=== PATIENT | female | born 1970 | race African-American/Black ===

== ENCOUNTER 2022-11-07 12:55 | Emergency (ER) | payer OTHER ==
[~2022-11-07] VITALS: Ht 167.6 cm; Wt 127.0 kg
[2022-11-07 14:39] LABS: BASOPHILS % 0.7 % (0.0-2.0); EOSINOPHILS % 1.4 % (0.0-5.0); HEMATOCRIT. 33.8 % (36.0-48.0); HEMOGLOBIN. 10.9 g/dL (12.0-16.0); MEAN CORPUSCULAR HEMOGLOBIN 28.5 pg (28.0-32.0); MEAN CORPUSCULAR VOLUME 88.9 fL (81.0-99.0); MEAN PLATELET VOLUME 7.6 fl (7.4-10.4); MONOCYTES % 7.2 % (2.0-8.0); NEUTROPHILS % 68.7 % (40.0-76.0); PLATELET 298 x1000/uL (130-400)
[2022-11-07] MEDS ORDERED: SODIUM CHLORIDE 0.9% 1,000 ML IV ONE (14:45)
[2022-11-07] MEDS ORDERED: KETOROLAC 15MG/ML VIAL IV ONE (14:45)
[2022-11-07 14:50] LABS: PROTHROMBIN TIME 10.5 sec (9.6-11.0)
[2022-11-07 16:04] LABS: CHLORIDE 109 mEq/L (98-107)
[2022-11-07 16:41] VITALS: BP 142/83
[2022-11-07 17:02] LABS: BASOPHILS % 0.6 % (0.0-2.0); EOSINOPHILS % 0.6 % (0.0-5.0); HEMATOCRIT. 31.7 % (36.0-48.0); HEMOGLOBIN. 10.2 g/dL (12.0-16.0); LYMPHOCYTES % 25.3 % (20.0-50.0); MEAN CORPUSCULAR HEMOGLOBIN 28.5 pg (28.0-32.0); MEAN CORPUSCULAR VOLUME 88.1 fL (81.0-99.0); MEAN PLATELET VOLUME 7.5 fl (7.4-10.4); MONOCYTES % 6.8 % (2.0-8.0); NEUTROPHILS % 66.7 % (40.0-76.0); PLATELET 284 x1000/uL (130-400); RED CELL DISTRIBUTION WIDTH 14.8 % (11.6-14.6)
== END 2022-11-07 18:10 | disposition home or self-care (01) ==
LOC: ER 12:55
DX: I83.892 Varicose veins of left lower extremity with other complications (principal); I10 Essential (primary) hypertension
CPT/HCPCS: 36415; 80053; 85025; 85610; 96361; 96374; 99283; J1885; J7030

== ENCOUNTER 2024-04-21 05:59 | Emergency (ER) | payer OTHER ==
[~2024-04-21] VITALS: Ht 175.3 cm; Wt 141.0 kg
[2024-04-21 06:13] VITALS: O2SAT 97
[2024-04-21] MEDS ORDERED: LIDOCAINE HCL/EPINEPHRINE 1%-EPI 1:100,000 20 ML VIAL INFIL ONE (06:45)
[2024-04-21] MEDS: ACETAMINOPHEN 325MG TABLET PO ONE (08:22)
[2024-04-21 08:23] VITALS: BP 121/68; PULSE 89; RESP 14; TEMP 97.4
== END 2024-04-21 08:24 | disposition home or self-care (01) ==
LOC: ER 05:59
DX: I83.92 Asymptomatic varicose veins of left lower extremity (principal); Z98.890 Other specified postprocedural states
CPT/HCPCS: 12001; 99283; J3490; Z7610 ×5